=== PATIENT | male | born 1955 | race Caucasian/White ===

== ENCOUNTER 2020-01-03 09:51 | Emergency (ER) | payer MEDICARE, MEDICAID ==
[~2020-01-03] VITALS: Ht 172.7 cm; Wt 93.0 kg
[~2020-01-03 09:51] MED LIST: ACET-3161 PO; BENZ1TAB7 GT; QUET400T PO
[2020-01-03] MEDS ORDERED: HYDROCODONE/ACETAMINOPHEN 5/325MG TABLET PO STA (10:22)
[2020-01-03] MEDS ORDERED: SODIUM CHLORIDE 0.9% 1,000 ML IV ONE (10:30)
[2020-01-03] MEDS ORDERED: CEFAZOLIN 1000MG PREMIX 50 ML IV ONE (10:30)
[2020-01-03] MEDS ORDERED: SILVER SULFADIAZINE 1% CREAM 25GM TOP ONE (10:30)
[2020-01-03] MEDS ORDERED: TETANUS, DIPHTHERIA, PERTUSSIS VAC/PF 0.5ML (>7YR OLD) IM ONE (10:30)
[2020-01-03 11:06] LABS: BASOPHILS % 1.2 % (0.0-2.0); EOSINOPHILS % 2.2 % (0.0-5.0); HEMATOCRIT. 40.8 % (42.0-52.0); HEMOGLOBIN. 13.8 g/dL (14.0-18.0); LYMPHOCYTES % 24.4 % (20.0-50.0); MEAN CORPUSCULAR HEMOGLOBIN 30.5 pg (28.0-32.0); MEAN CORPUSCULAR VOLUME 90.1 fL (80.0-94.0); MEAN PLATELET VOLUME 7.2 fl (7.4-10.4); MONOCYTES % 8.7 % (2.0-8.0); NEUTROPHILS % 63.5 % (40.0-76.0); PLATELET 345 x1000/uL (130-400); RED BLOOD CELL COUNT 4.53 mill/uL (4.7-6.1); RED CELL DISTRIBUTION WIDTH 14.7 % (11.6-14.6)
[2020-01-03 11:13] LABS: CHLORIDE 101 mEq/L (98-107)
[2020-01-03 12:30] VITALS: BP 118/72
== END 2020-01-03 13:15 | disposition home or self-care (01) ==
LOC: ER 09:51
DX: T24.112A Burn of first degree of left thigh, initial encounter (principal); B01.9 Varicella without complication; T31.0 Burns involving less than 10% of body surface; I10 Essential (primary) hypertension; E78.00 Pure hypercholesterolemia, unspecified; F15.10 Other stimulant abuse, uncomplicated; F17.210 Nicotine dependence, cigarettes, uncomplicated; X10.0XXA Contact with hot drinks, initial encounter; Y93.89 Activity, other specified; Y92.018 Other place in single-family (private) house as the place of occurrence of the external cause
CPT/HCPCS: 16000; 36415; 80053; 85025; 87040; 90471; 90715; 96365; 99285; J0690; J7030

== ENCOUNTER 2020-06-29 08:14 | Emergency (ER) | payer MEDICARE, MEDICAID ==
[~2020-06-29] VITALS: Ht 165.1 cm; Wt 66.0 kg
[2020-06-29 08:17] VITALS: BP 142/89
[2020-06-29] MEDS ORDERED: BACITRACIN ZINC OINT UDPKT TOP ONE (10:30)
[2020-06-29] MEDS ORDERED: LIDOCAINE HCL/PF 1% 10 MG/ML 5ML VIAL IJ ONE (10:30)
[2020-06-29] MEDS ORDERED: CEPHALEXIN 250MG CAPSULE PO ONE (11:45)
[2020-06-29] MEDS ORDERED: ACETAMINOPHEN 325MG TABLET PO ONE ×2 (11:45→12:15)
[2020-06-29] MEDS ORDERED: IBUP-2029 MT (12:41)
[2020-06-29] MEDS ORDERED: CEPH500T MT (12:41)
== END 2020-06-29 13:04 | disposition home or self-care (01) ==
LOC: ER 08:14
DX: S61.011A Laceration without foreign body of right thumb without damage to nail, initial encounter (principal); S09.8XXA Other specified injuries of head, initial encounter; S02.92XA Unspecified fracture of facial bones, initial encounter for closed fracture; I10 Essential (primary) hypertension; E78.00 Pure hypercholesterolemia, unspecified; Y08.89XA Assault by other specified means, initial encounter; Y93.9 Activity, unspecified; Y92.9 Unspecified place or not applicable
CPT/HCPCS: 29130; 70450; 70486; 73140; 99285; J3490

== ENCOUNTER 2021-01-27 13:58 | Emergency (ER) | payer MEDICARE ==
[~2021-01-27] VITALS: Ht 167.6 cm; Wt 70.0 kg
[~2021-01-27 13:58] MED LIST changes: +CEPH500T MT; +IBUP-2029 MT
[2021-01-27 16:27] LABS: *AMPHETAMINES SCREEN URINE PRESUMTIVE POSITIVE (NEGATIVE); *BARBITURATES SCREEN URINE NEGATIVE (NEGATIVE); *BENZODIAZEPINES SCREEN URINE NEGATIVE (NEGATIVE)
[2021-01-27 16:28] LABS: *COCAINE SCREEN URINE PRESUMTIVE POSITIVE (NEGATIVE); CANNABINOID URINE SCREEN PRESUMTIVE POSITIVE (NEGATIVE); METHADONE URINE SCREEN NEGATIVE (NEGATIVE); OPIATES URINE SCREEN NEGATIVE (NEGATIVE); PHENCYCLIDINE URINE SCREEN PRESUMTIVE POSITIVE (NEGATIVE)
[2021-01-27 16:39] VITALS: BP 123/64
== END 2021-01-27 16:40 | disposition home or self-care (01) ==
LOC: ER 13:58
DX: F15.10 Other stimulant abuse, uncomplicated (principal); E78.00 Pure hypercholesterolemia, unspecified; I10 Essential (primary) hypertension; Z79.899 Other long term (current) drug therapy; Z59.00 Homelessness unspecified
CPT/HCPCS: 80305; 99283